=== PATIENT | female | born 1960 | race Two or more races ===

== ENCOUNTER 2023-02-15 17:30 | Emergency (ER) | payer MEDICAID ==
[~2023-02-15] VITALS: Ht 167.6 cm; Wt 73.0 kg
[2023-02-15 17:50] VITALS: BP 103/75; RESP 16; O2SAT 94
[2023-02-15] MEDS ORDERED: SODIUM CHLORIDE 0.9% 2,000 ML IV ONE (18:00)
[2023-02-15 18:33] VITALS: PULSE 98
[2023-02-15 19:56] LABS: Alanine Aminotransferase 12 U/L (7-40); Albumin 3.6 g/dL (3.2-4.8); Alkaline Phosphatase 142 U/L (46-116); Anion Gap 8 (5-15); Aspartate Aminotransferase < 8 U/L (13-40); BUN/Creatinine Ratio 8.9 (10.0-20.0); Bilirubin, Total 0.5 mg/dL (0.2-1.0); Blood Urea Nitrogen 10 mg/dL (9-23); Calcium 8.7 mg/dL (8.7-10.4); Carbon Dioxide 28 mmol/L (20-30); Chloride 101 mmol/L (98-107); Glucose 319 mg/dL (74-106); Potassium 3.6 mmol/L (3.5-5.1); Sodium 137 mmol/L (136-145)
[2023-02-15 19:57] LABS: Total Protein 6.5 g/dL (5.7-8.2)
[2023-02-15 20:31] LABS: Urine Bacteria NONE SEEN /hpf (None Seen); Urine Blood Negative /uL (Negative); Urine Clarity HAZY (Clear); Urine Color Colorless (Yellow); Urine Protein, UAD Negative (Negative); Urine Specific Gravity 1.033 (1.001-1.035); Urine Urobilinogen Normal (Negative); Urine WBC 8 /hpf (0 - 5); Urine pH 5.5 (5.0-8.0)
[2023-02-15 20:42] LABS: Basophils # (auto) 0 10 ^3/uL (0-0.2); Basophils % (auto) 0.5 % (0.0-2.0); Eosinophils # (auto) 0.2 10 ^3/uL (0-0.8); Eosinophils % (auto) 1.9 % (0.0-7.0); Hematocrit 38.2 % (36.0-46.0); Hemoglobin 13.1 g/dL (12.2-16.2); Lymphocytes # (auto) 2.9 10 ^3/uL (0.4-5.4); Lymphocytes % (auto) 35.9 % (10.0-50.0); Mean Corpuscular Hemoglobin 28.3 pg (28.0-32.0); Mean Corpuscular Hgb Conc. 34.2 g/dL (32.0-36.0); Mean Corpuscular Volume 82.6 fL (80.0-100.0); Monocytes # (auto) 0.5 10 ^3/uL (0-1.3); Monocytes % (auto) 5.7 % (0.0-12.0); Neutrophils # (auto) 4.6 10 ^3/uL (1.6-8.6); Nucleated Red Blood Cells % 0.2 %; Red Blood Cells 4.62 10^6/uL (4.0-5.20); Red Cell Distribution Width 13.5 % (11.8-14.3); White Blood Cell 8.2 10^3/uL (4.4-10.8)
== END 2023-02-15 23:28 | disposition left against medical advice (07) ==
LOC: ER 17:30 → EDBD 17:30 → ER 23:28
DX: R55 Syncope and collapse (principal)
CPT/HCPCS: 36415; 80053; 81001; 82962; 85025; 93005; 96360

== ENCOUNTER → 2024-11-05 | Day surgery (SDC) | payer OTHER, MEDICAID ==
[2024-10-29 11:11] LABS: Hematocrit 40.5 % (36.0-46.0); Hemoglobin 13.6 g/dL (12.2-16.2); Mean Corpuscular Hemoglobin 27.9 pg (28.0-32.0); Mean Corpuscular Volume 82.7 fL (80.0-100.0); Nucleated Red Blood Cells % 0.0 %
[2024-10-29 11:21] LABS: Urine Protein, UAD Negative (Negative)
[2024-10-29 11:27] LABS: Alanine Aminotransferase 19 U/L (7-40); Albumin 4.2 g/dL (3.2-4.8); Anion Gap 9 (5-15); BUN/Creatinine Ratio 22.4 (10.0-20.0); Carbon Dioxide 29 mmol/L (20-31); Chloride 102 mmol/L (98-107); Potassium 4.4 mmol/L (3.5-5.1); Sodium 140 mmol/L (136-145); Total Protein 7.2 g/dL (5.7-8.2)
[2024-10-29 11:28] LABS: Alkaline Phosphatase 116 U/L (46-116); Bilirubin, Total 0.5 mg/dL (0.2-1.0); Blood Urea Nitrogen 28 mg/dL (9-23); Calcium 10.5 mg/dL (8.7-10.4); Glucose 297 mg/dL (74-106)
[2024-10-29 11:30] LABS: INR 0.97 (0.9-1.15); Partial Thromboplastin Time 24.5 SEC (24.5-34.5); Prothrombin Time 10.3 sec (9.3-11.8)
[~2024-11-05] VITALS: Ht 167.6 cm; Wt 80.3 kg
[~2024-11-05] MED LIST: CARV12.544 PO; DAPA1TAB4 PO; GABA-1250 PO; GLIM4TAB42 PO; HYDR-3682 PO; LISI20TA56 PO; LORA-622 PO; MIRT-94 OR; ceFAZolin 2 GM/D5W50ml 50 ML IV ONE
[2024-11-05 09:05] VITALS: BP 157/99; PULSE 82; RESP 20; TEMP 97.2; O2SAT 97
== END | disposition home or self-care (01) ==
LOC: SUR 08:05
PROVIDERS: ATTEND Orthopaedic Surgery Sports Medicine
DX: S83.411A Sprain of medial collateral ligament of right knee, initial encounter (principal); Z53.8 Procedure and treatment not carried out for other reasons; E11.9 Type 2 diabetes mellitus without complications; J45.909 Unspecified asthma, uncomplicated; E66.9 Obesity, unspecified; Z68.28 Body mass index [BMI] 28.0-28.9, adult; Z88.5 Allergy status to narcotic agent; X58.XXXA Exposure to other specified factors, initial encounter; Y93.89 Activity, other specified; Y92.89 Other specified places as the place of occurrence of the external cause; Y99.8 Other external cause status
CPT/HCPCS: 36415; 80053; 81001; 82962; 85025; 85610; 85730; J0690